=== PATIENT | female | born 1965 | race Caucasian/White ===

== ENCOUNTER 2023-12-14 12:30 | Inpatient (IN) | payer OTHER ==
[2023-12-14] MEDS ORDERED: Ondansetron PF 4 MG/2 ML Vial ONE (13:06)
[2023-12-14 13:08] LABS: #Basophils 0.12 10x3/uL (0.0-0.2); #Eosinphils Less than 0.03 10x3/uL (0.0-0.7); %Basophils 1.5 % (0.0-1.0); %Eosinophils 0.3 % (0.0-10.0); %Monocytes 6.1 % (0.0-10.0); %Neutrophils 49.7 % (42.0-75.0); Hematocrit 38.9 % (36.0-47.0); Hemoglobin 13.7 g/dL (12.0-16.0); Mean Corpuscular HGB CONC 35.2 g/dL (32.0-36.0); Mean Corpuscular Hemoglobin 32.9 pg (27.0-31.0); Mean Corpuscular Volume 93.3 fL (78.0-98.0); Mean Platelet Volume 9.1 fL (7.4-10.4); Platelet Count 377 10x3/uL (130-400); RBC Distribution Width 13.2 % (11.5-14.5); Red Blood Cell (RBC) Count 4.17 mill/uL (4.20-5.40)
[2023-12-14 13:17] LABS: ALT (SGPT) 27 U/L (8-55); AST (SGOT) 34 U/L (5-34); Albumin 3.8 g/dL (3.5-5.0); Alkaline Phosphatase 93 U/L (40-110); Anion Gap 25 mmol/L (10-20); BUN (Urea Nitrogen) 14 mg/dL (9.8-20.1); Bilirubin, Total 0.9 mg/dL (0.2-1.2); Calc. Creatinine Clearance 0 mL/min (70-130); Calcium 9.4 mg/dL (7.8-10.44); Carbon Dioxide 16 mmol/L (22-29); Chloride 103 mmol/L (98-107); Estimated GFR 88; Globulin 4.4 g/dL (2.4-3.5); Glucose 100 mg/dL (70-105); Potassium 3.6 mmol/L (3.5-5.1); Protein, Total 8.2 g/dL (6.0-8.3); Sodium 140 mmol/L (136-145)
[2023-12-14 13:18] LABS: Acetaminophen Less than 10 mcg/mL (Less than 10); Alcohol 240.1 mg/dL (Less than 10); Salicylate Less than 8.0 mg/dL (Less than 8.0)
[2023-12-14 13:24] LABS: Bacteria/HPF None Seen HPF (None Seen); Bilirubin Negative (Negative); Blood, Urine Negative (Negative); CAUTI Indications for Culture Dysuria,urgency,freq; Clarity Clear (Clear); Glucose, Urine (Dipstick) Normal (Negative); Ketone, Urine Negative (Negative); Leukocyte Negative Leu/uL (Negative); Nitrite Negative (Negative); Protein, Urine (Dipstick) Negative (Neg-Trace); RBC/HPF 0-3 HPF (0-3); Specific Gravity, Urine 1.003 (1.002-1.036); Squamous Epithelial None Seen HPF (0-3); Urobilinogen Normal mg/dL (Less than 2); WBC/HPF None Seen HPF (0-3); pH, Urine 5.5 (5.0-9.0)
[2023-12-14 13:28] LABS: Urine Culture Reflex No No
[2023-12-14 13:30] LABS: Amphetamine Not Detected (NotDetected); Barbiturates Screen Not Detected (NotDetected); Benzodiazepine Screen Not Detected (NotDetected); Cocaine Metabolite Screen Not Detected (NotDetected); Methadone Not Detected (NotDetected); Methamphetamine Not Detected (NotDetected); Opiate Screen Not Detected (NotDetected); Oxycodone Screen Not Detected (NotDetected); Phencyclidine (PCP) Not Detected (NotDetected); THC/Cannabinoid Screen Not Detected (NotDetected); Tricyclic Screen Not Detected (NotDetected)
[2023-12-14 13:36] LABS: Lipase 89 U/L (8-78)
[2023-12-14] MEDS ORDERED: Lorazepam 1 MG TAB ONE ×2 (14:24→23:05)
[2023-12-14] MEDS ORDERED: Lorazepam 2 MG/ML VIAL ONE (14:28)
[2023-12-14] MEDS ORDERED: Thiamine HCl 200 MG/2 ML VIAL ONE (15:48)
[2023-12-14] MEDS ORDERED: Ondansetron ODT 4 MG TAB PO PRN (17:25)
[2023-12-14] MEDS ORDERED: Lorazepam 2 MG/ML VIAL IM PRN (17:25)
[2023-12-14] MEDS ORDERED: Acetaminophen 650 MG Suppository PR PRN (17:25)
[2023-12-14] MEDS ORDERED: Ondansetron PF 4 MG/2 ML Vial IVP PRN (17:25)
[2023-12-14] MEDS ORDERED: Electrolyte Replacement Protocol 1 EACH FS SCH (17:30)
[2023-12-14 18:18] LABS: Phosphorus 2.1 mg/dL (2.3-4.7)
[2023-12-14] MEDS ORDERED: Nicotine 14 MG PATCH ONE (18:58)
[2023-12-14] MEDS ORDERED: Magnesium 2 GM/50 ML BAG (IN WATER) ONE (23:05)
[2023-12-14 23:14] VITALS: BMI 28.3
[2023-12-14] MEDS: Magnesium 2 GM/50 ML(in water) 2 GM in Premix 1 BAG IVPB SCH (23:15)
[2023-12-14] MEDS: Lorazepam 1 MG TAB PO PRN (23:16)
[2023-12-14] MEDS: Thiamine HCl 200 MG/2 ML VIAL SLOW IVP SCH (23:22)
[2023-12-14] MEDS: Multivit, Therapeutic 1 TAB PO SCH (23:23)
[2023-12-15] MEDS: Ondansetron ODT 4 MG TAB PO PRN (04:45)
[2023-12-15 04:53] LABS: ALT (SGPT) 22 U/L (8-55); AST (SGOT) 32 U/L (5-34); Albumin 3.1 g/dL (3.5-5.0); Alkaline Phosphatase 72 U/L (40-110); Anion Gap 13 mmol/L (10-20); BUN (Urea Nitrogen) 13 mg/dL (9.8-20.1); Bilirubin, Total 1.5 mg/dL (0.2-1.2); Calc. Creatinine Clearance 97 mL/min (70-130); Calcium 8.3 mg/dL (7.8-10.44); Carbon Dioxide 25 mmol/L (22-29); Chloride 106 mmol/L (98-107); Estimated GFR 88; Globulin 3.3 g/dL (2.4-3.5); Glucose 103 mg/dL (70-105); Potassium 3.6 mmol/L (3.5-5.1); Protein, Total 6.4 g/dL (6.0-8.3); Sodium 140 mmol/L (136-145)
[2023-12-15 04:55] LABS: #Basophils 0.07 10x3/uL (0.0-0.2); %Eosinophils 1.3 % (0.0-10.0); %Lymphocytes 33.5 % (21.0-51.0); %Monocytes 10.9 % (0.0-10.0); %Neutrophils 52.9 % (42.0-75.0); Hematocrit 33.7 % (36.0-47.0); Hemoglobin 11.8 g/dL (12.0-16.0); Mean Corpuscular Hemoglobin 32.7 pg (27.0-31.0); Mean Corpuscular Volume 93.4 fL (78.0-98.0); Mean Platelet Volume 9.4 fL (7.4-10.4); Platelet Count 267 10x3/uL (130-400); RBC Distribution Width 13.2 % (11.5-14.5); Red Blood Cell (RBC) Count 3.61 mill/uL (4.20-5.40)
[2023-12-15] MEDS: PREFILLED IVP SCH (09:24)
[2023-12-15] MEDS: FOLIC ACID IVP SCH (09:24)
[2023-12-15] MEDS: Enoxaparin 40 MG (0.4 mL) SYRINGE SC SCH (09:32)
[2023-12-15] MEDS: Acetaminophen 325 MG TAB PO PRN (09:32)
[2023-12-15] MEDS: Potassium Phosphate 15 MMOL in Sodium Chloride 0.9% 100 ML IVPB SCH (09:33)
[2023-12-15] MEDS: Folic Acid 1 MG TAB PO SCH (09:33)
[2023-12-15] MEDS: Famotidine 20 MG TAB PO SCH (09:33)
[2023-12-15] MEDS: Amlodipine 5 MG TAB PO SCH (12:26)
[2023-12-15] MEDS: Ibuprofen 200 MG TAB PO PRN (12:30)
[2023-12-15] MEDS: Loperamide HCl 2 MG CAP PO PRN (12:31)
[2023-12-15] MEDS: Nicotine 14 MG PATCH TD SCH (14:21)
[2023-12-15] MEDS: Lorazepam 1 MG TAB PO PRN (17:38)
[2023-12-16 06:23] LABS: Hematocrit 35.3 % (36.0-47.0); Mean Corpuscular Hemoglobin 31.8 pg (27.0-31.0); Mean Corpuscular Volume 93.6 fL (78.0-98.0); Mean Platelet Volume 9.7 fL (7.4-10.4); Platelet Count 243 10x3/uL (130-400); RBC Distribution Width 13.1 % (11.5-14.5); Red Blood Cell (RBC) Count 3.77 mill/uL (4.20-5.40)
[2023-12-16 07:11] LABS: Anion Gap 12 mmol/L (10-20); BUN (Urea Nitrogen) 16 mg/dL (9.8-20.1); Calc. Creatinine Clearance 92 mL/min (70-130); Calcium 8.3 mg/dL (7.8-10.44); Carbon Dioxide 22 mmol/L (22-29); Chloride 108 mmol/L (98-107); Estimated GFR 83; Glucose 104 mg/dL (70-105); Magnesium 1.9 mg/dL (1.6-2.6); Phosphorus 2.7 mg/dL (2.3-4.7); Potassium 3.6 mmol/L (3.5-5.1); Sodium 138 mmol/L (136-145)
[2023-12-16] MEDS ORDERED: Amlodipine 5 MG TAB PO SCH (09:00)
[2023-12-16] MEDS: chlordiazePOXIDE HCl 25 MG CAP PO SCH (14:23)
[2023-12-16] MEDS: Amlodipine 5 MG TAB PO SCH (16:16)
[2023-12-16] MEDS: Melatonin 3 MG TAB PO PRN (20:15)
[2023-12-17] MEDS: Lorazepam 1 MG TAB PO PRN (04:00)
[2023-12-17] MEDS: Amlodipine 5 MG TAB PO SCH (09:18)
[2023-12-17] MEDS: Thiamine 100 MG TAB PO SCH (09:27)
[2023-12-17] MEDS: Lidocaine 4% Patch TD SCH (10:58)
[2023-12-17] MEDS: Lorazepam 0.5 MG TAB PO PRN (20:20)
[2023-12-17] MEDS: Transdermal Patch Removal TOP SCH (20:22)
[2023-12-18] MEDS: Gabapentin 300 MG CAP PO SCH ×2 (12:20→21:13)
[2023-12-18] MEDS: Ketorolac Tromethamine 30 MG (1 mL) VIAL IVP SCH (12:21)
[2023-12-18] MEDS: DULoxetine 60 MG CAP PO SCH (12:21)
[2023-12-18] MEDS: chlordiazePOXIDE HCl 25 MG CAP PO SCH ×2 (14:35→21:13)
[2023-12-18] MEDS ORDERED: Ketorolac Tromethamine 30 MG (1 mL) VIAL IVP PRN (18:00)
[2023-12-19 03:35] VITALS: TEMP 98.2
[2023-12-19 09:04] VITALS: BP 126/77
[2023-12-19] MEDS: DULoxetine 60 MG CAP PO SCH (09:20)
== END 2023-12-19 11:26 | disposition home or self-care (01) | DRG 897 ==
LOC: ERS 12:30 → SUATTDRO 12:30 → ERHOLD 19:10 → OBSVTOIN 19:10 → MSONC 12-15 00:03
PROVIDERS: ADMIT Family Medicine; ATTEND Internal Medicine
DX: F10.129 Alcohol abuse with intoxication, unspecified (principal); I10 Essential (primary) hypertension; E83.39 Other disorders of phosphorus metabolism; G89.29 Other chronic pain; M54.9 Dorsalgia, unspecified; K52.9 Noninfective gastroenteritis and colitis, unspecified; F41.9 Anxiety disorder, unspecified; F17.210 Nicotine dependence, cigarettes, uncomplicated; F10.139 Alcohol abuse with withdrawal, unspecified; Z90.49 Acquired absence of other specified parts of digestive tract; Z88.2 Allergy status to sulfonamides; Z71.41 Alcohol abuse counseling and surveillance of alcoholic; Y90.8 Blood alcohol level of 240 mg/100 ml or more
CPT/HCPCS: 36415; 72100; 80048; 80053; 80306; 80307; 81001; 83690; 83735; 84100; 84443; 85025; 85027; 96374; 96375; J1650; J1885; J2060; J2405; J3411; J3475; Q0162

== ENCOUNTER 2024-02-25 18:40 | Inpatient (IN) | payer OTHER ==
[~2024-02-25 18:40] MED LIST: Iopamidol-370 76% 500 ML MDV (1 ML CHARGE) ONE
[2024-02-25] MEDS ORDERED: Morphine 2 MG/ML VIAL ONE ×2 (19:02→21:12)
[2024-02-25] MEDS ORDERED: Pantoprazole 40 MG VIAL ONE (19:03)
[2024-02-25] MEDS ORDERED: Ondansetron PF 4 MG/2 ML Vial ONE ×2 (19:03→21:12)
[2024-02-25 19:28] LABS: #Basophils 0.09 10x3/uL (0.0-0.2); %Basophils 0.8 % (0.0-1.0); %Eosinophils 0.4 % (0.0-10.0); %Lymphocytes 8.9 % (21.0-51.0); %Monocytes 9.9 % (0.0-10.0); %Neutrophils 79.6 % (42.0-75.0); Hemoglobin 13.3 g/dL (12.0-16.0); Mean Corpuscular Hemoglobin 34.1 pg (27.0-31.0); Mean Corpuscular Volume 97.4 fL (78.0-98.0); Mean Platelet Volume 9.9 fL (7.4-10.4); Platelet Count 192 10x3/uL (130-400); RBC Distribution Width 15.8 % (11.5-14.5)
[2024-02-25 19:44] LABS: ALT (SGPT) 112 U/L (8-55); AST (SGOT) 205 U/L (5-34); Albumin 3.2 g/dL (3.5-5.0); Alkaline Phosphatase 154 U/L (40-110); Anion Gap 17 mmol/L (10-20); BUN (Urea Nitrogen) 6 mg/dL (9.8-20.1); Bilirubin, Total 0.7 mg/dL (0.2-1.2); Calc. Creatinine Clearance 0 mL/min (70-130); Calcium 8.5 mg/dL (7.8-10.44); Carbon Dioxide 17 mmol/L (22-29); Chloride 98 mmol/L (98-107); Estimated GFR 92; Globulin 3.9 g/dL (2.4-3.5); Glucose 136 mg/dL (70-105); Potassium 3.6 mmol/L (3.5-5.1); Protein, Total 7.1 g/dL (6.0-8.3); Sodium 128 mmol/L (136-145)
[2024-02-25 19:48] LABS: Troponin I Less than 0.010 ng/mL (< 0.028)
[2024-02-25 19:50] LABS: Lipase 1437 U/L (8-78)
[2024-02-25 20:26] LABS: Bilirubin Negative (Negative); Blood, Urine 1+ (Negative); CAUTI Indications for Culture Immunosuppressed; Clarity Turbid (Clear); Glucose, Urine (Dipstick) Normal (Negative); Ketone, Urine 10 mg/dL (Negative); Leukocyte Negative Leu/uL (Negative); Nitrite Negative (Negative); Protein, Urine (Dipstick) 100 mg/dL (Neg-Trace); Specific Gravity, Urine 1.022 (1.002-1.036); Squamous Epithelial 0-3 HPF (0-3); Urobilinogen Normal mg/dL (Less than 2); WBC/HPF 0-3 HPF (0-3)
[2024-02-25 20:30] LABS: Bacteria/HPF Rare-Few HPF (None Seen)
[2024-02-25 20:31] LABS: Urine Culture Reflex Yes Yes
[2024-02-25] MEDS ORDERED: Morphine 4 MG/ML VIAL SLOW IVP PRN (21:45)
[2024-02-25] MEDS ORDERED: Lorazepam 2 MG/ML VIAL IM PRN (21:53)
[2024-02-25] MEDS ORDERED: Electrolyte Replacement Protocol 1 EACH FS PRN (22:00)
[2024-02-25] MEDS: Sodium Chloride 0.9% 1,000 ML IV SCH (22:58)
[2024-02-25] MEDS: D5 1/2 NS w/20 mEq KCL 1,000 ML IV SCH (23:01)
[2024-02-25 23:04] LABS: #Basophils 0.08 10x3/uL (0.0-0.2); #Eosinophils Less than 0.03 10x3/uL (0.0-0.7); %Basophils 0.7 % (0.0-1.0); %Eosinophils 0.2 % (0.0-10.0); %Lymphocytes 6.5 % (21.0-51.0); %Monocytes 8.4 % (0.0-10.0); %Neutrophils 83.7 % (42.0-75.0); Mean Corpuscular HGB CONC 34.2 g/dL (32.0-36.0); Mean Corpuscular Hemoglobin 33.6 pg (27.0-31.0); Mean Corpuscular Volume 98.2 fL (78.0-98.0); Mean Platelet Volume 9.6 fL (7.4-10.4); Platelet Count 169 10x3/uL (130-400); RBC Distribution Width 15.6 % (11.5-14.5); Red Blood Cell (RBC) Count 3.87 mill/uL (4.20-5.40)
[2024-02-25] MEDS: Ondansetron ODT 4 MG TAB PO PRN (23:28)
[2024-02-25] MEDS: Lorazepam 1 MG TAB PO SCH (23:29)
[2024-02-25] MEDS: Thiamine HCl 200 MG/2 ML VIAL SLOW IVP SCH (23:34)
[2024-02-25 23:46] LABS: Bilirubin, Direct 0.3 mg/dL (0.1-0.3); Magnesium 1.4 mg/dL (1.6-2.6); Phosphorus 3.1 mg/dL (2.3-4.7)
[2024-02-26 00:18] VITALS: BMI 28.3
[2024-02-26 00:59] LABS: Amphetamine Not Detected (NotDetected); Barbiturates Screen Not Detected (NotDetected); Benzodiazepine Screen Not Detected (NotDetected); Cocaine Metabolite Screen Not Detected (NotDetected); Methadone Not Detected (NotDetected); Methamphetamine Not Detected (NotDetected); Opiate Screen Not Detected (NotDetected); Oxycodone Screen Not Detected (NotDetected); Phencyclidine (PCP) Not Detected (NotDetected); THC/Cannabinoid Screen Not Detected (NotDetected); Tricyclic Screen Not Detected (NotDetected)
[2024-02-26] MEDS: Lorazepam 1 MG TAB PO PRN (02:04)
[2024-02-26] MEDS: Morphine 4 MG/ML VIAL SLOW IVP PRN (02:05)
[2024-02-26] MEDS: Ondansetron PF 4 MG/2 ML Vial IVP PRN (05:55)
[2024-02-26 07:43] LABS: #Basophils 0.07 10x3/uL (0.0-0.2); #Eosinophils Less than 0.03 10x3/uL (0.0-0.7); %Basophils 0.5 % (0.0-1.0); %Eosinophils 0.1 % (0.0-10.0); %Lymphocytes 3.9 % (21.0-51.0); %Monocytes 7.7 % (0.0-10.0); %Neutrophils 87.2 % (42.0-75.0); Hematocrit 36.3 % (36.0-47.0); Hemoglobin 12.5 g/dL (12.0-16.0); Mean Corpuscular HGB CONC 34.4 g/dL (32.0-36.0); Mean Corpuscular Hemoglobin 33.9 pg (27.0-31.0); Mean Corpuscular Volume 98.4 fL (78.0-98.0); Mean Platelet Volume 10.3 fL (7.4-10.4); Platelet Count 171 10x3/uL (130-400); RBC Distribution Width 15.9 % (11.5-14.5); Red Blood Cell (RBC) Count 3.69 mill/uL (4.20-5.40)
[2024-02-26 08:02] LABS: ALT (SGPT) 85 U/L (8-55); AST (SGOT) 141 U/L (5-34); Albumin 2.9 g/dL (3.5-5.0); Alkaline Phosphatase 136 U/L (40-110); Anion Gap 14 mmol/L (10-20); BUN (Urea Nitrogen) 8 mg/dL (9.8-20.1); Bilirubin, Total 1.4 mg/dL (0.2-1.2); Calc. Creatinine Clearance 112 mL/min (70-130); Calcium 8.1 mg/dL (7.8-10.44); Carbon Dioxide 22 mmol/L (22-29); Chloride 101 mmol/L (98-107); Estimated GFR 102; Globulin 3.7 g/dL (2.4-3.5); Glucose 137 mg/dL (70-105); Potassium 4.1 mmol/L (3.5-5.1); Protein, Total 6.6 g/dL (6.0-8.3); Sodium 133 mmol/L (136-145)
[2024-02-26] MEDS: Famotidine/PF 20 mg/2ml Vial SLOW IVP SCH (08:27)
[2024-02-26] MEDS: Enoxaparin 40 MG (0.4 mL) SYRINGE SC SCH (08:28)
[2024-02-26] MEDS: Magnesium Sulfate In Water 4 GM in Premix 1 BAG IVPB SCH (08:29)
[2024-02-26] MEDS: Cefepime 1 GM in Sodium Chloride 0.9% 100 ML IVPB SCH (11:04)
[2024-02-26] MEDS: Folic Acid 1 MG TAB PO SCH (11:04)
[2024-02-26] MEDS: Multivit, Therapeutic 1 TAB PO SCH (11:04)
[2024-02-26] MEDS: Morphine 2 MG/ML VIAL SLOW IVP PRN (16:50)
[2024-02-26] MEDS ORDERED: GUAIFENESIN SF SOLN 200 MG/10 ML UDCUP PO PRN (20:44)
[2024-02-26] MEDS: Benzonatate 100 MG CAP PO PRN (21:47)
[2024-02-26] MEDS ORDERED: Lorazepam 1 MG TAB PO PRN (21:53)
[2024-02-27] MEDS: Acetaminophen 325 MG TAB PO PRN (03:30)
[2024-02-27 04:41] LABS: ALT (SGPT) 59 U/L (8-55); AST (SGOT) 89 U/L (5-34); Albumin 2.6 g/dL (3.5-5.0); Alkaline Phosphatase 112 U/L (40-110); Anion Gap 13 mmol/L (10-20); BUN (Urea Nitrogen) 7 mg/dL (9.8-20.1); Bilirubin, Total 1.4 mg/dL (0.2-1.2); Calc. Creatinine Clearance 114 mL/min (70-130); Calcium 7.4 mg/dL (7.8-10.44); Carbon Dioxide 21 mmol/L (22-29); Chloride 104 mmol/L (98-107); Estimated GFR 103; Globulin 3.5 g/dL (2.4-3.5); Glucose 109 mg/dL (70-105); Potassium 3.8 mmol/L (3.5-5.1); Protein, Total 6.1 g/dL (6.0-8.3); Sodium 134 mmol/L (136-145)
[2024-02-27 04:47] LABS: #Basophils Less than 0.03 10x3/uL (0.0-0.2); %Basophils 0.2 % (0.0-1.0); %Lymphocytes 7.7 % (21.0-51.0); %Monocytes 7.1 % (0.0-10.0); %Neutrophils 83.2 % (42.0-75.0); Hemoglobin 11.3 g/dL (12.0-16.0); Mean Corpuscular HGB CONC 34.2 g/dL (32.0-36.0); Mean Corpuscular Hemoglobin 33.9 pg (27.0-31.0); Mean Corpuscular Volume 99.1 fL (78.0-98.0); Mean Platelet Volume 10.7 fL (7.4-10.4); Platelet Count 126 10x3/uL (130-400); RBC Distribution Width 16.3 % (11.5-14.5); Red Blood Cell (RBC) Count 3.33 mill/uL (4.20-5.40)
[2024-02-27 05:01] LABS: PTT 30.9 sec (22.9-36.1); Prothrombin Time 13.6 sec (12.0-14.7)
[2024-02-27] MEDS: Saccharomyces boulardii 250 MG CAP PO SCH (09:04)
[2024-02-27] MEDS: Pantoprazole 40 MG VIAL IVP SCH (09:04)
[2024-02-27] MEDS: Amoxicillin/Potassium Clav 875 MG TAB PO SCH (09:04)
[2024-02-27] MEDS: Lorazepam 1 MG TAB PO PRN (21:30)
[2024-02-27] MEDS ORDERED: Lorazepam 0.5 MG TAB PO SCH (22:00)
[2024-02-28] MEDS: Calcium Carbonate 500 MG ChewTAB PO SCH (03:21)
[2024-02-28 08:46] LABS: #Basophils 0.03 10x3/uL (0.0-0.2); %Basophils 0.4 % (0.0-1.0); %Eosinophils 2.4 % (0.0-10.0); %Lymphocytes 16.7 % (21.0-51.0); %Monocytes 8.5 % (0.0-10.0); %Neutrophils 71.4 % (42.0-75.0); Hematocrit 33.3 % (36.0-47.0); Hemoglobin 11.3 g/dL (12.0-16.0); Mean Corpuscular HGB CONC 33.9 g/dL (32.0-36.0); Mean Corpuscular Hemoglobin 33.8 pg (27.0-31.0); Mean Corpuscular Volume 99.7 fL (78.0-98.0); Mean Platelet Volume 10.5 fL (7.4-10.4); Platelet Count 150 10x3/uL (130-400); RBC Distribution Width 16.5 % (11.5-14.5); Red Blood Cell (RBC) Count 3.34 mill/uL (4.20-5.40)
[2024-02-28 09:01] LABS: ALT (SGPT) 62 U/L (8-55); AST (SGOT) 124 U/L (5-34); Albumin 2.7 g/dL (3.5-5.0); Alkaline Phosphatase 148 U/L (40-110); Anion Gap 14 mmol/L (10-20); BUN (Urea Nitrogen) 8 mg/dL (9.8-20.1); Bilirubin, Total 1.1 mg/dL (0.2-1.2); Calc. Creatinine Clearance 114 mL/min (70-130); Calcium 8.5 mg/dL (7.8-10.44); Carbon Dioxide 23 mmol/L (22-29); Chloride 103 mmol/L (98-107); Estimated GFR 103; Globulin 4.1 g/dL (2.4-3.5); Glucose 117 mg/dL (70-105); Potassium 3.4 mmol/L (3.5-5.1); Protein, Total 6.8 g/dL (6.0-8.3); Sodium 137 mmol/L (136-145)
[2024-02-28] MEDS: Thiamine 100 MG TAB PO SCH (20:37)
[2024-02-29] MEDS: Promethazine HCl 12.5 MG in Sodium Chloride 0.9% 50 ML IVPB PRN (00:21)
[2024-02-29] MEDS: Lorazepam 0.5 MG TAB PO PRN ×2 (01:04→13:21)
[2024-02-29] MEDS: Potassium Chloride 20 MEQ TAB PO SCH (09:37)
[2024-02-29] MEDS ORDERED: Melatonin 3 MG TAB PO PRN (10:43)
[2024-02-29] MEDS ORDERED: Gabapentin 300 MG CAP PO PRN (10:44)
[2024-02-29 11:05] LABS: #Basophils 0.05 10x3/uL (0.0-0.2); %Basophils 0.8 % (0.0-1.0); %Eosinophils 2.9 % (0.0-10.0); %Lymphocytes 21.4 % (21.0-51.0); %Monocytes 11.1 % (0.0-10.0); Hematocrit 32.8 % (36.0-47.0); Hemoglobin 10.8 g/dL (12.0-16.0); Mean Corpuscular HGB CONC 32.9 g/dL (32.0-36.0); Mean Corpuscular Hemoglobin 33.8 pg (27.0-31.0); Mean Corpuscular Volume 102.5 fL (78.0-98.0); Mean Platelet Volume 9.7 fL (7.4-10.4); Platelet Count 191 10x3/uL (130-400); RBC Distribution Width 16.5 % (11.5-14.5)
[2024-02-29 11:52] LABS: ALT (SGPT) 61 U/L (8-55); AST (SGOT) 117 U/L (5-34); Albumin 2.7 g/dL (3.5-5.0); Alkaline Phosphatase 143 U/L (40-110); Anion Gap 14 mmol/L (10-20); BUN (Urea Nitrogen) 9 mg/dL (9.8-20.1); Bilirubin, Total 0.7 mg/dL (0.2-1.2); Calc. Creatinine Clearance 89 mL/min (70-130); Calcium 8.5 mg/dL (7.8-10.44); Carbon Dioxide 21 mmol/L (22-29); Chloride 106 mmol/L (98-107); Estimated GFR 79; Globulin 4.3 g/dL (2.4-3.5); Glucose 126 mg/dL (70-105); Phosphorus 2.3 mg/dL (2.3-4.7); Potassium 4.2 mmol/L (3.5-5.1); Sodium 137 mmol/L (136-145)
[2024-02-29] MEDS: Magnesium 2 GM/50 ML(in water) 2 GM in Premix 1 BAG IVPB SCH (16:30)
[2024-02-29] MEDS: Lorazepam 1 MG TAB PO PRN (17:50)
[2024-02-29] MEDS: Cyanocobalamin (Vitamin B-12) 1,000 MCG TAB PO SCH (20:42)
[2024-02-29] MEDS: Melatonin 3 MG TAB PO SCH (20:44)
[2024-02-29] MEDS: traZODone HCl 50 MG TAB PO PRN (20:47)
[2024-03-01 05:08] LABS: Hematocrit 30.4 % (36.0-47.0); Hemoglobin 10.3 g/dL (12.0-16.0)
[2024-03-01 07:28] VITALS: TEMP 98.8
[2024-03-01 12:11] VITALS: BP 132/89
== END 2024-03-01 16:42 | disposition home or self-care (01) | DRG 439 ==
LOC: ERS 18:40 → T4-A 21:39 → EEVIPCON 21:39
PROVIDERS: ADMIT Hospitalist; ATTEND Internal Medicine
DX: K85.21 Alcohol induced acute pancreatitis with uninfected necrosis (principal); E87.1 Hypo-osmolality and hyponatremia; F10.239 Alcohol dependence with withdrawal, unspecified; N39.0 Urinary tract infection, site not specified; E87.20 Acidosis, unspecified; B96.20 Unspecified Escherichia coli [E. coli] as the cause of diseases classified elsewhere; I10 Essential (primary) hypertension; F17.210 Nicotine dependence, cigarettes, uncomplicated; K70.10 Alcoholic hepatitis without ascites; R79.89 Other specified abnormal findings of blood chemistry; F32.A Depression, unspecified; D72.829 Elevated white blood cell count, unspecified; E83.42 Hypomagnesemia; E87.6 Hypokalemia; E88.09 Other disorders of plasma-protein metabolism, not elsewhere classified; Z90.49 Acquired absence of other specified parts of digestive tract; Z79.899 Other long term (current) drug therapy; R19.5 Other fecal abnormalities
CPT/HCPCS: 36415; 74177; 76705; 80053; 80306; 81001; 82248; 82274; 83605; 83690; 83735; 84100; 84478; 84484; 85014; 85018; 85025; 85610; 85730; 87040; 87077; 87086; 87186; 93005; J0692; J1650; J2272; J2405; J2470; J2550; J3411; J3475; J3490; J7030; Q0162; Q9967

== ENCOUNTER 2024-04-03 18:27 | Emergency (ER) | payer OTHER ==
[2024-04-03] MEDS ORDERED: Morphine 4 MG/ML VIAL ONE (18:46)
[2024-04-03] MEDS ORDERED: Ondansetron PF 4 MG/2 ML Vial ONE (18:46)
[2024-04-03 19:08] LABS: #Basophils 0.09 10x3/uL (0.0-0.2); %Basophils 1.1 % (0.0-1.0); %Eosinophils 0.7 % (0.0-10.0); %Lymphocytes 51.2 % (21.0-51.0); %Monocytes 6.2 % (0.0-10.0); %Neutrophils 40.4 % (42.0-75.0); Hematocrit 37.6 % (36.0-47.0); Hemoglobin 12.9 g/dL (12.0-16.0); Mean Corpuscular HGB CONC 34.3 g/dL (32.0-36.0); Mean Corpuscular Hemoglobin 32.8 pg (27.0-31.0); Mean Corpuscular Volume 95.7 fL (78.0-98.0); Mean Platelet Volume 9.5 fL (7.4-10.4); Platelet Count 332 10x3/uL (130-400); Red Blood Cell (RBC) Count 3.93 mill/uL (4.20-5.40)
[2024-04-03 19:25] LABS: ALT (SGPT) 70 U/L (8-55); AST (SGOT) 87 U/L (5-34); Albumin 3.7 g/dL (3.5-5.0); Alkaline Phosphatase 109 U/L (40-110); Anion Gap 15 mmol/L (10-20); BUN (Urea Nitrogen) 8 mg/dL (9.8-20.1); Bilirubin, Total 0.7 mg/dL (0.2-1.2); Calc. Creatinine Clearance 0 mL/min (70-130); Calcium 8.9 mg/dL (7.8-10.44); Carbon Dioxide 24 mmol/L (22-29); Chloride 106 mmol/L (98-107); Estimated GFR 90; Glucose 109 mg/dL (70-105); Lipase 59 U/L (8-78); Potassium 3.7 mmol/L (3.5-5.1); Protein, Total 7.7 g/dL (6.0-8.3); Sodium 141 mmol/L (136-145)
[2024-04-03 20:16] LABS: Bacteria/HPF None Seen HPF (None Seen); Bilirubin Negative (Negative); Blood, Urine Negative (Negative); CAUTI Indications for Culture Pelvic or flank pain; Clarity Clear (Clear); Glucose, Urine (Dipstick) Normal (Negative); Ketone, Urine Negative (Negative); Leukocyte Negative Leu/uL (Negative); Nitrite Negative (Negative); Protein, Urine (Dipstick) Negative (Neg-Trace); RBC/HPF None Seen HPF (0-3); Squamous Epithelial 0-3 HPF (0-3); Urobilinogen Normal mg/dL (Less than 2); WBC/HPF 0-3 HPF (0-3)
[2024-04-03 20:18] LABS: Urine Culture Reflex No No
== END 2024-04-03 21:10 | disposition home or self-care (01) ==
LOC: ERS 18:27
DX: R10.84 Generalized abdominal pain (principal); I10 Essential (primary) hypertension; F17.210 Nicotine dependence, cigarettes, uncomplicated
CPT/HCPCS: 36415; 74177; 80053; 81001; 83690; 85025; 96374; 96375; J2270; J2405; Q9967

== ENCOUNTER 2024-04-04 07:28 | Emergency (ER) | payer OTHER ==
[2024-04-04] MEDS ORDERED: Ketorolac Tromethamine 30 MG (1 mL) VIAL ONE (07:52)
[2024-04-04] MEDS ORDERED: Morphine 4 MG/ML VIAL ONE ×2 (07:53→08:58)
[2024-04-04] MEDS ORDERED: Ondansetron PF 4 MG/2 ML Vial ONE (07:53)
[2024-04-04] MEDS ORDERED: Famotidine/PF 20 mg/2ml Vial ONE (07:56)
[2024-04-04 08:25] LABS: Lipase 63 U/L (8-78)
[2024-04-04 08:27] LABS: Acetaminophen Less than 10 mcg/mL (Less than 10); Alcohol 78.5 mg/dL (Less than 10); Salicylate Less than 8.0 mg/dL (Less than 8.0)
[2024-04-04 08:28] LABS: ALT (SGPT) 73 U/L (8-55); AST (SGOT) 97 U/L (5-34); Albumin 3.7 g/dL (3.5-5.0); Alkaline Phosphatase 114 U/L (40-110); Anion Gap 19 mmol/L (10-20); BUN (Urea Nitrogen) 9 mg/dL (9.8-20.1); Bilirubin, Total 1.1 mg/dL (0.2-1.2); Calc. Creatinine Clearance 0 mL/min (70-130); Calcium 8.7 mg/dL (7.8-10.44); Carbon Dioxide 18 mmol/L (22-29); Chloride 102 mmol/L (98-107); Estimated GFR 92; Globulin 4.1 g/dL (2.4-3.5); Glucose 131 mg/dL (70-105); Potassium 3.5 mmol/L (3.5-5.1); Protein, Total 7.8 g/dL (6.0-8.3); Sodium 135 mmol/L (136-145)
[2024-04-04 08:38] LABS: Large Platelets 3.4 % (0-5); Lymphocytes 24 % (21-51); Monocytes 7 % (0-10); Neutrophil 69 % (42-75); Ovalocytes SLIGHT = 2-5 cells HPF (0-1); Platelet Adequacy Comment Platelets Normal; Polychromasia SLIGHT = 2-3 cells HPF (0-2); Reactive Lymphocytes 1 % (0-10)
[2024-04-04 08:40] LABS: %Basophils 0.9 % (0.0-1.0); %Eosinophils 1.5 % (0.0-10.0); %Lymphocytes 25.4 % (21.0-51.0); %Monocytes 6.9 % (0.0-10.0); %Neutrophils 65.1 % (42.0-75.0); Hematocrit 36.9 % (36.0-47.0); Hemoglobin 12.8 g/dL (12.0-16.0); Mean Corpuscular HGB CONC 34.7 g/dL (32.0-36.0); Mean Corpuscular Hemoglobin 33.4 pg (27.0-31.0); Mean Corpuscular Volume 96.3 fL (78.0-98.0); Mean Platelet Volume 10.3 fL (7.4-10.4); Platelet Count 250 10x3/uL (130-400); RBC Distribution Width 14.1 % (11.5-14.5); Red Blood Cell (RBC) Count 3.83 mill/uL (4.20-5.40)
[2024-04-04 09:52] LABS: Bacteria/HPF None Seen HPF (None Seen); Bilirubin Negative (Negative); Blood, Urine Negative (Negative); CAUTI Indications for Culture Dysuria,urgency,freq; Clarity Clear (Clear); Glucose, Urine (Dipstick) Normal (Negative); Ketone, Urine Negative (Negative); Leukocyte Negative Leu/uL (Negative); Nitrite Negative (Negative); Protein, Urine (Dipstick) Negative (Neg-Trace); RBC/HPF 0-3 HPF (0-3); Squamous Epithelial 0-3 HPF (0-3); Urobilinogen Normal mg/dL (Less than 2); WBC/HPF 0-3 HPF (0-3)
[2024-04-04 09:56] LABS: Amphetamine Not Detected (NotDetected); Barbiturates Screen Not Detected (NotDetected); Benzodiazepine Screen Not Detected (NotDetected); Cocaine Metabolite Screen Not Detected (NotDetected); Methadone Not Detected (NotDetected); Methamphetamine Not Detected (NotDetected); Opiate Screen Detected (NotDetected); Oxycodone Screen Not Detected (NotDetected); Phencyclidine (PCP) Not Detected (NotDetected); THC/Cannabinoid Screen Not Detected (NotDetected); Tricyclic Screen Not Detected (NotDetected)
[2024-04-04 10:13] LABS: Urine Culture Reflex No No
[2024-04-04] MEDS ORDERED: Lorazepam 2 MG/ML VIAL ONE (12:08)
== END 2024-04-04 14:02 | disposition home or self-care (01) ==
LOC: ERS 07:28
DX: K85.90 Acute pancreatitis without necrosis or infection, unspecified (principal); F10.239 Alcohol dependence with withdrawal, unspecified; I10 Essential (primary) hypertension; F17.210 Nicotine dependence, cigarettes, uncomplicated; Y90.3 Blood alcohol level of 60-79 mg/100 ml
CPT/HCPCS: 36415; 80053; 80306; 80307; 81001; 83605; 83690; 85025; 96374; 96375; 96376; J1885; J2060; J2270; J2405; J3490

== ENCOUNTER 2025-01-14 14:30 | Outpatient (CLI) | payer OTHER | END 2025-01-14 14:31 | disposition home or self-care (01) | LOC: BICRAD 14:30 | PROVIDERS: ATTEND Internal Medicine | DX: Z02.71 Encounter for disability determination (principal); M47.812 Spondylosis without myelopathy or radiculopathy, cervical region; M43.12 Spondylolisthesis, cervical region; M40.50 Lordosis, unspecified, site unspecified | CPT/HCPCS: 72040; 72100 ==